=== PATIENT | male | born 2000 | race Two or more races ===

== ENCOUNTER 2022-12-21 20:12 | Emergency (ER) | payer MEDICAID ==
[~2022-12-21] VITALS: Ht 170.2 cm; Wt 62.4 kg
[2022-12-21 20:48] VITALS: BP 134/65; PULSE 84; RESP 16; TEMP 98.7
[2022-12-21] MEDS ORDERED: MOXI3DRO25 OS (23:14)
== END 2022-12-21 23:21 | disposition home or self-care (01) ==
LOC: EMS 20:17
DX: H10.9 Unspecified conjunctivitis (principal); H57.12 Ocular pain, left eye
CPT/HCPCS: 99283